=== PATIENT | female | born 1990 | race Two or more races ===

== ENCOUNTER 2023-10-20 15:22 | Emergency (ER) | payer OTHER ==
[~2023-10-20] VITALS: Ht 167.6 cm; Wt 64.0 kg
[2023-10-20 15:25] VITALS: BP 143/91; PULSE 124; RESP 16; TEMP 98.7; O2SAT 96
== END 2023-10-20 18:45 | disposition left against medical advice (07) ==
LOC: ER 15:22
DX: S05.11XA Contusion of eyeball and orbital tissues, right eye, initial encounter (principal); Z53.21 Procedure and treatment not carried out due to patient leaving prior to being seen by health care provider; Y04.0XXA Assault by unarmed brawl or fight, initial encounter; Y93.89 Activity, other specified; Y92.89 Other specified places as the place of occurrence of the external cause; Y99.8 Other external cause status
CPT/HCPCS: 99281